=== PATIENT | female | born 1985 | race Caucasian/White ===

== ENCOUNTER → 2023-09-03 | Outpatient (CLI) | payer MEDICAID ==
[2023-09-03 15:04] LABS: HGB 11.7 g/dL (12.0-17.0); MCH 31.9 pg (27.0-32.0); MCHC 33.4 g/dL (32.0-37.0); MCV 95.4 FL (80.0-97.0); Mean Platelet Volume 9.6 FL (9.5-12.2); NRBC Per 100 WBC 0 X 10*3/uL (0.00-0.01); Platelet Count 281 X 10*3/uL (140-440); RBC 3.67 X 10*6/uL (4.10-5.60); WBC 7.37 X 10*3/uL (4.50-10.00)
== END | disposition home or self-care (01) ==
LOC: LABWHC1 09:02
PROVIDERS: ATTEND Obstetrics & Gynecology Obstetrics
DX: Z36.9 Encounter for antenatal screening, unspecified (principal)
CPT/HCPCS: 36415; 82950; 85027

== ENCOUNTER 2023-11-26 06:13 | Inpatient (IN) | payer MEDICAID ==
[2023-11-26] MEDS ORDERED: TERBUTALINE 1 MG/ML VIAL SQ PRN (06:27)
[2023-11-26] MEDS ORDERED: TRANEXAMIC 1,000 MG/100ML-NACL 1,000 MG in EMPTY BAG 1 BAG IV PRN (06:27)
[2023-11-26] MEDS ORDERED: CARBOPROST TROMETHAMINE 250 MCG/ML 1 ML AMP IM PRN (06:27)
[2023-11-26] MEDS ORDERED: OXYTOCIN 10 UNIT/ML 1 ML VIAL IM PRN (06:27)
[2023-11-26] MEDS ORDERED: LIDOCAINE 0.5% (PF) 5 MG/ML (50 ML SDV) SQ PRN (06:27)
[2023-11-26] MEDS ORDERED: miSOPROStoL 200 MCG TAB PO PRN (06:27)
[2023-11-26] MEDS ORDERED: METHYLERGONOVINE 0.2 MG/ML 1 ML AMP IM PRN (06:27)
[2023-11-26] MEDS: LACTATED RINGERS 1,000 ML IV SCH (06:53)
[2023-11-26] MEDS: OXYTOCIN 30 UNITS/500 ML NS 30 UNIT in SALINE 1 500ML.BAG IV SCH (06:54)
[2023-11-26 07:45] LABS: Basophils % (A) 0 %; Eosinophils # (A) 0.1 k/uL (0-0.7); Eosinophils % (A) 1 %; HCT 35.5 % (34.0-46.0); HGB 11.8 gm/dL (11.4-16.0); Lymphocytes # (A) 1.8 k/uL (1.0-4.8); Lymphocytes % (A) 21 %; MCH 31.3 pg (25.0-35.0); MCHC 33.3 g/dL (31.0-37.0); Mean Platelet Volume 8.1; Monocytes # (A) 0.4 k/uL (0-1.0); Monocytes % (A) 4 %; Neutrophils % (A) 72 %; Platelet Count 296 k/uL (150-450); RBC 3.78 m/uL (3.80-5.40); RDW 14.3 % (11.5-15.5); WBC 8.3 k/uL (3.8-10.6)
[2023-11-26] MEDS ORDERED: LANOLIN CREAM 1 GM TUBE TOPICAL PRN (12:34)
[2023-11-26] MEDS ORDERED: ZOLPIDEM 5 MG TAB PO PRN (12:34)
[2023-11-26] MEDS ORDERED: diphenhydrAMINE 50 MG CAP PO PRN (12:34)
[2023-11-26] MEDS ORDERED: SIMETHICONE 80 MG CHEWABLE PO PRN (12:34)
[2023-11-26] MEDS ORDERED: BENZOCAINE/MENTHOL SPRAY 1 GM/SPRAY AEROSOL TOPICAL PRN (12:34)
[2023-11-26] MEDS ORDERED: HYDROCORTISONE 2.5% RECTAL CREAM 30 GM TUBE RECTAL PRN (12:34)
[2023-11-26] MEDS ORDERED: diphenhydrAMINE 50 MG/ML 1 ML VIAL IVP PRN ×2 (12:34)
[2023-11-26] MEDS ORDERED: ACETAMINOPHEN TAB 325 MG TAB PO PRN (12:34)
[2023-11-26] MEDS ORDERED: diphenhydrAMINE 25 MG CAP PO PRN (12:34)
[2023-11-26] MEDS: IBUPROFEN 600 MG TAB PO SCH (17:54)
[2023-11-26] MEDS: SENNOSIDES-DOCUSATE SODIUM 1 EACH TAB PO SCH (20:18)
[2023-11-27] MEDS: PRENATAL VIT-IRON-FOLIC ACID 1 EACH TABLET PO SCH (08:37)
--- NOTE | 2023-11-27 08:41 | P.DS ---
Providers Date of admission: 11/26/23 06:13 Expected date of discharge: 11/27/23 Attending physician: Sparkle Romano Primary care physician: Jen Wise - Discharge Diagnosis(es) (1) Term Current Visit: Yes Status: Acute (2) AMA (advanced maternal age) multigravida 35+ Current Visit: Yes Status: Acute (3) Status post vaginal delivery Current Visit: Yes Status: Acute (4) Obstetrical laceration, second degree Current Visit: Yes Status: Acute Hospital Course: This is a 38-year-old G3 now P2 012 that presented to labor and delivery at 39- 2/7 weeks for scheduled induction of labor. Patient did admit that contractions began around 3 AM and were becoming closer together prior to admission. Patient denied loss of fluid at that time. Patient was admitted to labor and delivery and Pitocin augmentation of labor was begun. Patient quickly requested an epidural around 8:30 in the morning. Patient did get good relief of her contractions from the epidural. Patient progressed quickly to complete and began pushing. Patient had a normal spontaneous vaginal delivery of a viable female at 1212, weight of 7 pounds 12 ounces, Apgars of 8 and 9 at 1 and 5 minutes respectively. Patient did sustain a second-degree midline laceration which was repaired in usual fashion with 3-0 Rapide. Patient's course has been uneventful. This day #1 she is ambulating and voiding without difficulty. She is breast-feeding without difficulty. She notes her lochia to be moderate to mild. She is tolerating a regular diet without nausea or vomiting. States her pain is well-controlled. She would like discharge home at 24 hours if possible. Patient Condition at Discharge: Good Plan - Discharge Summary New Discharge Prescriptions: No Action Vit No.179/Iron/Folic [ Tablet] 1 each PO DAILY Discharge Medication List Vit No.179/Iron/Folic [ Tablet] 1 each PO DAILY 11/26/23 [History] Follow up Appointment(s)/Referral(s): Sparkle Romano DO [Doctor of Osteopathic Medicine] - 6 Weeks Patient Instructions/Handouts: Vaginal Delivery (DC), Vaginal Delivery (GEN) Activity/Diet/Wound Care/Special Instructions: No intercourse, tampons or douching. No heavy lifting greater than a gallon of milk. No driving for two weeks. Call with any fever, shakes or chills, with any pain not alleviated by over the counter meds, or with any quesions or concerns. Discharge Disposition: HOME SELF-CARE
--- NOTE | 2023-11-27 08:43 | P.PROBDLV ---
Vaginal Delivery Note - . Vaginal Delivery Note: 38 yo at 39 2/7 that presents for induction of labor. Patient states she began francisco on her own around 3 AM and then presented for scheduled induction at 6 AM. She was admitted to labor and delivery and pitocin augmentation of labor was begun. Upon admission she was uncomfortable and with augmentation quickly requested an epidural. Epidural was placed without difficulty by the anesthesia department. She progressed quickly to complete and began pushing. She pushed to a crowing presentation, and with excellent maternal effort had a normal spontaneous vaginal delivery of a viable female infant, spontaneous cry was noted. After a 2 minute delay, the umbilical cord was doubly clamped and cut. The placenta was delivered manually and the uterus was noted to be firm and below the umbilicus. EBL 100 cc viable female delivered at 12:12, weight 7-12, Apgars of 8 and 9 at one and 5 minute respectively. all counts were correct x 2 patient and infant tolerated delivery well
--- NOTE | 2023-11-27 08:44 | P.HPOB ---
History of Present Illness H&P Date: 11/26/23 Chief Complaint: IUP @ 39 2/7 weeks, DARRYN This is a 38 yo at 39 2/7 weeks that presents for induction of labor. She has been receiving routine care with myself. care has been essentially uncomplicated. she states she did begin francisco around 3 am, they did become more regular prior to admission. She denies LOF, vaginal bleeding. She notes good movement. Om blood work she has a blood type of O pos, rubella immune, RPR NR, HIV neg, HBSaG neg. Review of Systems Constitutional: Denies chills, Denies fatigue, Denies fever Ears, nose, mouth and throat: Denies headache Cardiovascular: Reports leg edema Respiratory: Denies dyspnea Gastrointestinal: Denies nausea, Denies vomiting Genitourinary: Reports Past Medical History History of Any Multi-Drug Resistant Organisms: None Reported Additional Past Surgical History / Comment(s): Left Salpingectomy, Right meniscus repair Smoking Status: Never smoker Past Drug Use History: None Reported Medications and Allergies Home Medications Medication Instructions Recorded Confirmed Type Vit No.179/Iron/Folic 1 each PO DAILY 11/26/23 11/26/23 History [ Tablet] Allergies Allergy/AdvReac Type Severity Reaction Status Date / Time No Known Allergies Allergy Verified 11/26/23 06:26 Exam Osteopathic Statement: *. No significant issues noted on an osteopathic structural exam other than those noted in the History and Physical/Consult. Vital Signs Temp Pulse Resp BP Pulse Ox 11/26/23 06:26 97.3 F L 79 16 117/70 97 Intake and Output 11/25/23 11/26/23 11/26/23 22:59 06:59 14:59 Other: Weight 107.955 kg in general this is a well nourished well developed female in NAD, heart has a RRR, breathing is non labored. - OBG Physical Exam Abdomen: gravid, appropriate for GA Cervix: 4-5cm per RN Uterus: gravid Results Result Diagrams: 11/26/23 06:30 Abnormal Lab Results - Last 24 Hours (Table) 11/26/23 Range/Units 06:30 RBC 3.78 L (3.80-5.40) m/uL Assessment and Plan (1) Term Current Visit: Yes Status: Acute Code(s): Z34.90 - ENCNTR FOR SUPRVSN OF NORMAL , UNSP, UNSP TRIMESTER SNOMED Code(s): 66824834 (2) AMA (advanced maternal age) multigravida 35+ Current Visit: Yes Status: Acute Code(s): O09.529 - SUPERVISION OF ELDERLY MULTIGRAVIDA, UNSPECIFIED TRIMESTER SNOMED Code(s): 498796407 Plan: 38 yo at 39 2/7 weeks that present for Induction of labor. she is admitted and pitocin is begun per hospital protocol. She is requesting epidural and anesthesia is notified. Anticipate spontaneous vaginal delivery.
[2023-11-27 12:53] VITALS: BP 125/76; PULSE 76; RESP 17; TEMP 98.3
== END 2023-11-27 14:20 | disposition home or self-care (01) | DRG 807 ==
LOC: 4FBP 06:13
PROVIDERS: ADMIT Obstetrics & Gynecology Obstetrics; ATTEND Obstetrics & Gynecology Obstetrics
PROC: 0KQM0ZZ Repair Perineum Muscle, Open Approach (ICD-10-PCS; principal; 2023-11-26)
PROC: 10E0XZZ Delivery of Products of Conception, External Approach (ICD-10-PCS; principal; 2023-11-26)
DX: O70.1 Second degree perineal laceration during delivery (principal); Z3A.39 39 weeks gestation of pregnancy; Z37.0 Single live birth
CPT/HCPCS: 85025; 86850; 86900; 86901